=== PATIENT | female | born 1975 | race Caucasian/White ===

== ENCOUNTER 2024-02-12 09:53 | Day surgery (SDC) | payer BC ==
[~2024-02-12 09:53] MED LIST: Sodium Chloride 0.9% 10 ML Syringe FLUSH PRN; Sodium Chloride 0.9% 10 ML Syringe FLUSH SCH
[2024-02-12] MEDS: Lactated Ringers 1,000 ML IV SCH (10:20)
[2024-02-12] MEDS ORDERED: Dexamethasone 4 MG/ML 5 ML MDV ONE (10:28)
[2024-02-12] MEDS ORDERED: Lidocaine 1% 5 ML VIAL ONE (10:28)
[2024-02-12] MEDS ORDERED: Midazolam 1 MG/ML 2 ML SDV ONE (10:28)
[2024-02-12] MEDS ORDERED: Rocuronium 50 MG/5 ML Vial ONE ×2 (10:28→12:20)
[2024-02-12] MEDS ORDERED: fentaNYL 250 MCG/5 ML SDV ONE (10:28)
[2024-02-12] MEDS ORDERED: Propofol 200 MG/20 ML SDV ONE ×2 (10:28→12:31)
[2024-02-12] MEDS ORDERED: Ondansetron 4 MG/2 ML SDV ONE (10:28)
[2024-02-12] MEDS: Gabapentin 300 MG Cap PO SCH (10:41)
[2024-02-12] MEDS: Celecoxib 100 MG Cap PO SCH (10:42)
[2024-02-12] MEDS: Acetaminophen 325 MG Tab PO SCH (10:42)
[2024-02-12] MEDS ORDERED: oxyCODONE 5 MG Tab PO PRN (11:54)
[2024-02-12] MEDS ORDERED: ceFAZolin 2 GM Vial ONE (11:55)
[2024-02-12] MEDS ORDERED: Lactated Ringers 1,000 ML ONE (12:06)
[2024-02-12] MEDS: Bupivacaine 0.5% 30 ML SDV ONE (12:20)
[2024-02-12] MEDS ORDERED: HYDROmorphone 0.5 MG/0.5 ML Syringe ONE (12:22)
[2024-02-12] MEDS ORDERED: fentaNYL 100 MCG/2 ML SDV IVPUSH PRN (12:39)
[2024-02-12] MEDS ORDERED: HYDROmorphone 0.5 MG/0.5 ML Syringe IVPUSH PRN (12:39)
[2024-02-12] MEDS ORDERED: Ondansetron 4 MG/2 ML SDV IVPUSH PRN (12:39)
[2024-02-12] MEDS ORDERED: Ketorolac 30 MG/ML SDV ONE (12:46)
[2024-02-12] MEDS ORDERED: Sugammadex Sodium 200 MG/2 ML VIAL IV ONE (12:46)
== END 2024-02-12 14:35 | disposition home or self-care (01) ==
LOC: JD.SDS 09:53
PROVIDERS: ATTEND Obstetrics & Gynecology
DX: N70.11 Chronic salpingitis (principal); F41.9 Anxiety disorder, unspecified; Z87.891 Personal history of nicotine dependence; Z79.899 Other long term (current) drug therapy; Z88.2 Allergy status to sulfonamides; Z91.040 Latex allergy status; Z91.030 Bee allergy status
CPT/HCPCS: 58661; 81025; A9270; J0665; J1100; J1171; J1885; J2250; J2405; J2704; J3010; J3490; J7120; 00840; J0690

== ENCOUNTER 2024-03-04 07:12 | Day surgery (SDC) | payer BC ==
[2024-03-04] MEDS: Lactated Ringers 1,000 ML IV SCH (07:30)
[2024-03-04] MEDS ORDERED: Lidocaine 1% 4 ML ONE (07:56)
[2024-03-04] MEDS ORDERED: Propofol 200 MG/20 ML SDV ONE (07:56)
[2024-03-04] MEDS ORDERED: Midazolam 1 MG/ML 2 ML SDV ONE (07:56)
== END 2024-03-04 09:13 | disposition home or self-care (01) ==
LOC: JD.SDS 07:12
PROVIDERS: ATTEND Surgery
DX: Z12.11 Encounter for screening for malignant neoplasm of colon (principal); R19.5 Other fecal abnormalities; Z87.891 Personal history of nicotine dependence; Z91.040 Latex allergy status; Z88.2 Allergy status to sulfonamides
CPT/HCPCS: 45378; J2250; J2704; J7120; J3490